=== PATIENT | female | born 1980 | race Two or more races ===

== ENCOUNTER → 2025-02-02 | Outpatient (CLI) | payer BC, MEDICAID, SELFPAY ==
--- NOTE | 2025-02-02 10:24 | XR_ITS ---
Examination: PA lateral chest 2 views Technique: Upright PA lateral chest 2 views Exam date and time: February 02, 2025 1037 hrs. Indications: Diagnosis coccidiomycosis 2018 Findings: Normal heart size. No mediastinal lymphadenopathy. Lungs are clear. Impression: No active disease
== END | disposition home or self-care (01) ==
PROVIDERS: PCP Physician Assistant; Referring Provider Internal Medicine Infectious Disease; Visit Provider Internal Medicine Infectious Disease
DX: B38.9 Coccidioidomycosis, unspecified (principal)
CPT/HCPCS: 71046